=== PATIENT | female | born 1980 | race Caucasian/White ===

== ENCOUNTER 2017-05-04 11:42 | Observation (INO) | payer BC ==
[~2017-05-04 11:42] MED LIST: DEPO400I IM
[2017-05-04] MEDS ORDERED: TERBUTALINE INJ 1 MG/ML AMP ONE (13:13)
--- NOTE | 2017-05-04 15:07 | HHI.DCPOC ---
Discharge Care Plan Report Symptoms to Your Doctor -Temperature above 100.5 degrees -Redness, of incision or excessive or foul smelling drainage -Unusual pain or calf pain -Increased vaginal bleeding -Painful or difficulty urinating -Feelings of extreme sadness or anxiety after 2 weeks Goals to Promote Your Health * To prevent worsening of your condition and complications * To maintain your health at the optimal level Directions to Meet Your Goals Take your medications as prescribed Follow your dietary instruction Follow activity as directed Ensure plenty of rest for recovery Drink fluids for hydration Keep your appointments as scheduled Take your immunizations and boosters as scheduled If your symptoms worsen call your PCP, if no PCP go to Urgent Care Center or Emergency Room Smoking is Dangerous to Your Health. Avoid second hand smoke Call the 24-hour crisis hotline for domestic abuse at [facility]TO next Tuesday at 5:30 for sonogram and section if indicated Amy Tubbs MD May 04, 2017 15:07
== END 2017-05-04 15:22 | disposition home or self-care (01) ==
LOC: H2EB 11:42
PROVIDERS: ADMIT Obstetrics & Gynecology; ATTEND Obstetrics & Gynecology
DX: O32.1XX0 Maternal care for breech presentation, not applicable or unspecified (principal); Z3A.38 38 weeks gestation of pregnancy
CPT/HCPCS: J3105

== ENCOUNTER 2017-05-06 16:35 | Inpatient (IN) | payer BC ==
[2017-05-06] VITALS (9 sets, daily range): BP systolic 112–139; BP diastolic 66–88; PULSE 77–88; RESP 16–19; TEMP 97.7–97.9; O2SAT 100
--- NOTE | 2017-05-06 17:19 | HHI.HP ---
HPI Chief Complaint term, breech, active labor Date Seen: May 06, 2017 Time Seen: 17:14 Travel History International Travel<30 Days: No Contact w/Intl Traveler<30Days: No Known Affected Area: No History of Present Illness HPI 37 yo mwf G1 at 38 3/7 to L & D with regular strong UCs and breech . Attempted version Tuesday not successful. Was 2 cm then. Strip category one. Breech confirmed sonographically For section. No PTL, GDM, HTN PNC with HOGA Weeks Gestation: 38 Para: 0 : 1 Last Menstrual Period: May 06, 2017 Miscarriage: 0 : 0 History Past Medical History Medical History: Denies Significant Hx Past Surgical History Surgical History: No Previous Surgery Family History Family History: Negative Social History Alcohol Use: No Tobacco Use: No Substance Abuse: No Allergies-Medications (Allergen,Severity, Reaction): Coded Allergies: azithromycin (Unverified Adverse Reaction, Intermediate, N & V, DEHYDRATION, 04/12/17) Home Meds Discontinued Reported Medications Medroxyprogesterone Acetate (Depo-Provera) 400 Mg/Ml Inj, 400 MG IM [id number] 03/06/13 Physical Exam Narrative GENERAL: Well-nourished, well-developed patient. SKIN: Warm and dry. HEAD: Normocephalic and atraumatic. EYES: No scleral icterus. No injection or drainage. ENT: No nasal drainage noted. Mucous membranes pink. Airway patent. NECK: Supple, trachea midline. No JVD. CARDIOVASCULAR: Regular rate and rhythm without murmurs, gallops, or rubs. RESPIRATORY: Breath sounds equal bilaterally. No accessory muscle use. BREASTS: Bilateral exam showed no masses , no retractions, no nipple discharge. ABDOMEN/GI: Abdomen soft, non-tender, bowel sounds present, no rebound, no guarding Gravid to [-] weeks size Fundal Height: [-] GENITOURINARY: External Genitalia: intact and normal in appearance 2-3 regular strong UCs category 1 EXTREMITIES: No cyanosis or edema. BACK: Nontender without obvious deformity. No CVA tenderness. NEUROLOGICAL: Awake and alert. Motor and sensory grossly within normal limits. Five out of 5 muscle strength in all muscle groups. Normal speech. Caprini VTE Risk Assessment Caprini VTE Risk Assessment: No/Low Risk (score <= 1) Caprini Risk Assessment Model Point Value = 1 Point Value = 2 Point Value = 3 Point Value = 5 Age 41-60 Minor surgery BMI > 25 kg/m2 Swollen legs Varicose veins or History of unexplained or recurrent spontaneous Oral contraceptives or hormone replacement Sepsis (< 1 month) Serious lung disease, including pneumonia (< 1 month) Abnormal pulmonary function Acute myocardial infarction Congestive heart failure (< 1 month) History of inflammatory bowel disease Medical patient at bed rest Age 61-74 Arthroscopic surgery Major open surgery (> 45 min) Laparoscopic surgery (> 45 min) Malignancy Confined to bed (> 72 hours) Immobilizing plaster cast Central venous access Age >= 75 History of VTE Family history of VTE Factor V Leiden Prothrombin [id number] Lupus anticoagulant Anticardiolipin antibodies Elevated serum homocysteine Heparin-induced thrombocytopenia Other congenital or acquired thrombophilia Stroke (< 1 month) Elective arthroplasty Hip, pelvis, or leg fracture Acute spinal cord injury (< 1 month) Prophylaxis Regimen Total Risk Factor Score Risk Level Prophylaxis Regimen 0-1 Low Early ambulation 2 Moderate Order ONE of the following: *Sequential Compression Device (SCD) *Heparin 5000 units SQ BID 3-4 Higher Order ONE of the following medications: *Heparin 5000 units SQ TID *Enoxaparin/Lovenox 40 mg SQ daily (WT < 150 kg, CrCl > 30 mL/min) *Enoxaparin/Lovenox 30 mg SQ daily (WT < 150 kg, CrCl > 10-29 mL/min) *Enoxaparin/Lovenox 30 mg SQ BID (WT < 150 kg, CrCl > 30 mL/min) AND/OR *Sequential Compression Device (SCD) 5 or more Highest Order ONE of the following medications: *Heparin 5000 units SQ TID (Preferred with Epidurals) *Enoxaparin/Lovenox 40 mg SQ daily (WT < 150 kg, CrCl > 30 mL/min) *Enoxaparin/Lovenox 30 mg SQ daily (WT < 150 kg, CrCl > 10-29 mL/min) *Enoxaparin/Lovenox 30 mg SQ BID (WT < 150 kg, CrCl > 30 mL/min) AND *Sequential Compression Device (SCD) Data Data Orders Orders Vascular Poc Ultrasound (05/06/17 ) Admit To Inpatient (05/06/17 ) Code Status (05/06/17 17:11) Vital Signs (Adult) .ON ADMISSION (05/06/17 17:11) Activity Oob Ad Stacy (05/06/17 17:11) Heart (05/06/17 17:11) Urinary Catheter Management ERNESTO.Q8H (05/06/17 17:11) ^ Preps (05/06/17 17:11) Scd / Timothy / Foot Pump ERNESTO.QSHIFT (05/06/17 17:11) ^ Ultrasound For Locatio (05/06/17 17:11) Diet Npo (05/06/17 Dinner) Lactated Ringer's 1000 Ml Inj (Lr 1000 M (05/06/17 17:11) Lactated Ringer's 1000 Ml Inj (Lr 1000 M (05/06/17 17:41) Cefazolin 2 Gm Premix (Ancef 2 Gm Premix (05/06/17 18:15) Citric Acid-Sodium Citrate Liq (Bicitra (05/06/17 18:45) Type And Screen (05/06/17 17:11) Complete Blood Count With Diff (05/06/17 17:11) Urinalysis - C+S If Indicated (05/06/17 17:11) Inpatient Certification (05/06/17 ) Specimen To Be Collected PRN (05/06/17 17:11) Assessment/Plan Assessment and Plan breech in active labor section now. Amy Tubbs MD May 06, 2017 17:19
[2017-05-06 17:26] LABS: AUTOMATED NEUTROPHIL # 8.1 TH/MM3 (1.8-7.7); BASOPHIL # 0.1 TH/MM3 (0-0.2); BASOPHIL % 0.6 % (0.0-2.0); HEMATOCRIT 33.2 % (35.0-46.0); HEMO FLAGS DIFF FINAL; LYMPH % 27.7 % (9.0-44.0); LYMPHOCYTE # 3.4 TH/MM3 (1.0-4.8); MEAN CORPUSCULAR HEMOGLOBIN 30.6 PG (27.0-34.0); MEAN CORPUSCULAR HGB CONC 33.2 % (32.0-36.0); MONO % 5.4 % (0.0-8.0); NEUT % 66.3 % (16.0-70.0); PLATELET COUNT 207 TH/MM3 (150-450); RED CELL DISTRIBUTION WIDTH 14.1 % (11.6-17.2); WHITE BLOOD COUNT 12.2 TH/MM3 (4.0-11.0)
[2017-05-06] MEDS ORDERED: LACTATED RINGER'S 1000 ML INJ 1,000 ML IV ONE (17:30)
[2017-05-06] MEDS ORDERED: OXYTOCIN 10 UNIT/ML AMP ONE (17:36)
[2017-05-06 17:48] LABS: BACTERIA, URINE MOD /hpf; BLOOD, URINE MOD (NEG); CALCIUM OXALATE CRYSTALS,URINE MANY /hpf; COMMENT (UR) CULTURE INDICATED; CULTURE IF INDICATED CULTURE INDICATED; GLUCOSE,URINE NEG (NEG); KETONE, URINE TRACE mg/dL (NEG); MUCUS URINE MOD /lpf (OCC); NITRITE,URINE NEG (NEG); SQUAMOUS EPITHELIAL CELL URINE 14 /hpf (0-5); URINE COLOR YELLOW (YELLW/STRAW)
[2017-05-06] MEDS ORDERED: LACTATED RINGER'S 1000 ML INJ 1,000 ML IV SCH (18:00)
[2017-05-06] MEDS ORDERED: ACETAMINOPHEN 1000 MG/100 ML 100 ML IV ONE (18:01)
[2017-05-06] MEDS ORDERED: ceFAZolin 2 GM PREMIX 50 ML IV SCH (18:15)
[2017-05-06] MEDS ORDERED: CITRIC ACID-SODIUM CITRATE LIQ 30 ML UDC PO SCH (18:45)
[2017-05-06] MEDS ORDERED: CLINDAMYCIN INJ 600 MG in SODIUM CHLORIDE 0.9% INJ 100 ML IV SCH (19:15)
[2017-05-06] MEDS ORDERED: SIMETHICONE 80 MG CHEWABLE TAB PO PRN (19:15)
[2017-05-06] MEDS ORDERED: KETOROLAC TROMETHAMINE 60 MG/2 ML (IM) VIAL IM PRN (19:15)
[2017-05-06] MEDS ORDERED: ZOLPIDEM TARTRATE 5 MG TAB PO PRN (19:15)
[2017-05-06] MEDS ORDERED: DOCUSATE SODIUM 50 MG/SENNA 8.6 MG TAB PO PRN (19:15)
[2017-05-06] MEDS ORDERED: OXYTOCIN 30 UNITS-500ML PREMIX 500 ML IV ONE (19:15)
[2017-05-06] MEDS ORDERED: ACETAMINOPHEN 325 MG TAB PO PRN (19:15)
[2017-05-06] MEDS ORDERED: SODIUM CHLORIDE 0.9% FLUSH 10 ML FLUSH IV FLUSH PRN (19:15)
[2017-05-06] MEDS ORDERED: ONDANSETRON HCL 4 MG/2 ML VIAL IV PUSH PRN (19:15)
--- NOTE | 2017-05-06 21:32 | PD.OB.DELI ---
Weeks gestation: 38 Gest age assessed date: May 06, 2017 Gest age assessed time: 21:29 Pt started active labor?: Yes Active labor start date: May 06, 2017 Active labor start time: 06:00 Medical induction of labor?: No Artificial rupture of membrane: Yes Artificial ROM date: May 06, 2017 Artifical ROM time: 09:00 Anesthesia: Epidural Episiotomy: Midline Vaginal Delivery: Normal Presentation: Occiput anterior Nuchal Cord: None Delayed cord clamping (45 sec): Yes Infant: Female Delivery date: May 06, 2017 Delivery time: 19:00 One Minute : 9 Five Minute : 9 Weight: 7 13 Placenta: Spontaneous delivery Laceration: 4 deg, Involving anal sphincter, Into rectum Repair: Chromic interrupted, Vicryl interrupted Estimated blood loss: 250 Additional Information repair in layers with excellent results. Vacuum at outlet due to exhaustion. Baby ROP for much of second stage rotating to JUDD at very end. Amy Tubbs MD May 06, 2017 21:32
--- NOTE | 2017-05-06 21:36 | PD.OB.DELI ---
Procedure Note Section Procedure Pre Op Diagnosis: (1) Breech presentation Post Op Diagnosis: (1) delivery indicated due to breech presentation Performed by Amy Tubbs Procedure: Primary Low Transverse Sec Indication for delivery: malposition Previous condition: None Informed consent obtained: For anesthesia, For procedure Confirmed correct: Patient, Procedure, Site, Time-out taken Anesthesia: Spinal Medication prior to procedure: As documented in eMAR Monitoring during procedure: Blood pressure monitoring, environmental monitoring technician, doppler, Pulse oximetry Urinary catheter: Inserted using sterile technique, To dependent drainage Sterile preparation: In usual fashion, With 2% chlorexidine (Hibiclens) Position: Supine with wedge to right side Operative Features Skin Incision: Pfannenstiel Uterine Incision: Low transverse w/knife / blunt ext Membranes Ruptured: Artificially Presentation: Breech Delivery date: May 06, 2017 Delivery time: 19:00 Delivery of infant: Assisted Infant: Female One Minute : 9 Five Minute : 9 Weight: 7 Status of : Viable Placenta delivered: Intact Medications: Antibiotics, Oxytocin Estimated blood loss: 500 Maternal Condition: Stable Condition: Stable (dictated) Amy Tubbs MD May 06, 2017 21:36
[2017-05-06] MEDS: oxyCODONE/ACETAMINOPHEN 5 MG/325 MG TAB PO PRN (23:56)
[2017-05-06] MEDS: IBUPROFEN 600 MG TAB PO PRN (23:56)
[2017-05-07] MEDS ORDERED: LACTATED RINGER'S 1000 ML INJ 1,000 ML IV SCH (00:11)
[2017-05-07 00:30] VITALS: BP 95/67; PULSE 103; RESP 18; TEMP 98.3
[2017-05-07 01:28] VITALS: BP 95/67; PULSE 103; RESP 18
[2017-05-07 04:03] VITALS: BP 108/65; PULSE 96; RESP 18; TEMP 98.4
[2017-05-07] MEDS ORDERED: OXYTOCIN 30 UNITS-500ML PREMIX 500 ML IV PRN (05:15)
[2017-05-07] MEDS: oxyCODONE/ACETAMINOPHEN 5 MG/325 MG TAB PO PRN ×5 (06:08→23:47)
[2017-05-07] MEDS: IBUPROFEN 600 MG TAB PO PRN ×4 (06:08→23:47)
[2017-05-07 07:30] VITALS: BP 103/65; PULSE 96; RESP 17; TEMP 98.3
[2017-05-07] MEDS ORDERED: POLYETHYLENE GLYCOL 17 GM PKG PO SCH (09:00)
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
[2017-05-07] MEDS ORDERED: OXYC1TAB63 PO (09:25)
--- NOTE | 2017-05-07 09:26 | HHI.DCPOC ---
Discharge Care Plan Report Symptoms to Your Doctor -Temperature above 100.5 degrees -Redness, of incision or excessive or foul smelling drainage -Unusual pain or calf pain -Increased vaginal bleeding -Painful or difficulty urinating -Feelings of extreme sadness or anxiety after 2 weeks Goals to Promote Your Health * To prevent worsening of your condition and complications * To maintain your health at the optimal level Directions to Meet Your Goals Take your medications as prescribed Follow your dietary instruction Follow activity as directed Ensure plenty of rest for recovery Drink fluids for hydration Keep your appointments as scheduled Take your immunizations and boosters as scheduled If your symptoms worsen call your PCP, if no PCP go to Urgent Care Center or Emergency Room Smoking is Dangerous to Your Health. Avoid second hand smoke Call the 24-hour crisis hotline for domestic abuse at Amy Tubbs MD May 07, 2017 09:26
[2017-05-07] MEDS: DOCUSATE SODIUM 50 MG/SENNA 8.6 MG TAB PO SCH ×2 (10:14→23:47)
[2017-05-07 14:29] LABS: AUTOMATED NEUTROPHIL # 8.7 TH/MM3 (1.8-7.7); BASOPHIL % 0.1 % (0.0-2.0); EOSINOPHIL % 0.1 % (0.0-4.0); HEMATOCRIT 25.7 % (35.0-46.0); HEMO FLAGS DIFF FINAL; LYMPH % 21.2 % (9.0-44.0); LYMPHOCYTE # 2.5 TH/MM3 (1.0-4.8); MEAN CELL VOLUME 92.2 FL (80.0-100.0); MEAN CORPUSCULAR HEMOGLOBIN 31.8 PG (27.0-34.0); MEAN CORPUSCULAR HGB CONC 34.4 % (32.0-36.0); MONO % 4.7 % (0.0-8.0); NEUT % 73.9 % (16.0-70.0); PLATELET COUNT 159 TH/MM3 (150-450); RED BLOOD COUNT 2.78 MIL/MM3 (4.00-5.30); RED CELL DISTRIBUTION WIDTH 13.8 % (11.6-17.2); WHITE BLOOD COUNT 11.8 TH/MM3 (4.0-11.0)
[2017-05-07] MEDS ORDERED: DIPHTH/TETANUS/ACEL PERTUSSIS (BOOSTER) 0.5 ML VIAL/PFS IM ONE (16:00)
[2017-05-07] MEDS ORDERED: MEASLES, MUMPS, RUBELLA VACCINE 0.5 ML VIAL SQ ONE (16:00)
[2017-05-07 17:00] VITALS: BP 94/67; PULSE 91; RESP 17; TEMP 98.5
--- NOTE | 2017-05-07 17:36 | MP ---
cc: VANDANA COLIN DATE OF SURGERY 05/06/17 DATE OF 1980 PREOPERATIVE DIAGNOSIS Term intrauterine in active labor with breech presentation. POSTOPERATIVE DIAGNOSIS 1. Term intrauterine in active labor with breech presentation. 2. Delivered PROCEDURE Primary low transverse segment section ANESTHESIA Spinal. She declined Duramorph. SURGEON Shanelle Colin MD MACHINE CLOTH TRIMMER Dr. Adolfo Lieberman FINDINGS A living female weighing 7 pounds 8 ounces with Apgars nine at one and 9 at 5 was delivered from right sacrum anterior with classic Pinard maneuvers. Placenta was posterior, grade 3 and then delivered manually with a three-vessel cord. Uterus, tubes and ovaries were unremarkable and blood loss was less than average, probably 500 mL. Sponge, instrument and needle count were correct and she and baby tolerated procedure well. PROCEDURE IN DETAIL The patient was identified as Maile Franks. The indications for procedure, risks and benefits were discussed both prior and at this time. She was walked to the back, given a spinal. She declined Duramorph. She was given 2 grams of Ancef. She was placed in dorsal supine position with weight off the vena cava. She had sequential stockings on. She had a Green catheter placed. She was prepped and draped in the usual sterile fashion. A time-out was performed with all in attendance. After assuring adequate analgesia, a Pfannenstiel incision was made with a knife and carried down through the rectus fascia. The rectus fascia was incised with a knife and taken off the rectus muscle. The rectus muscle was in the midline and the parietal peritoneum was entered sharply. A bladder flap was created off the lower uterine segment. An incision was carefully made into the intrauterine cavity and the amniotic sac was ruptured with clear fluid. The infant was in a le breech position, but the legs were easily grasped at the ankles and the was delivered in footling breech with classic Pinard maneuvers for the arms. The cord was clamped after 45 seconds, cut and the infant was handed to the neonatology team in attendance. Cord gas and cord blood was obtained. The placenta was delivered manually intact. The uterus was exteriorized, cleaned with a lap sponge and closed with chromic in a running interlocking fashion. A second horizontal imbricating suture was then placed. The uterus was replaced back into the abdominal cavity, assured to be hemostatic with no bleeding from the edges or angle and then irrigation was performed. At this point, the rectus muscle and peritoneum were gently closed and then the fascia was closed with one Vicryl in a non interlocking fashion. The subcutaneous layer was closed with 3-0 plain. The skin was closed with 4-0 Vicryl on a Prabhjot needle. Sponge, instrument, needle count correct. Mom and baby tolerated procedure well. MD GILDA Roy/SA /3:17 PM /5:21 PM
[2017-05-07 18:45] VITALS: BP 97/67; PULSE 90; RESP 20; TEMP 98.2; O2SAT 98
[2017-05-08 03:26] VITALS: PULSE 90; RESP 18; TEMP 98.2; O2SAT 97
[2017-05-08 03:29] VITALS: BP 88/63
[2017-05-08] MEDS: IBUPROFEN 600 MG TAB PO PRN ×3 (05:39→17:49)
[2017-05-08] MEDS: oxyCODONE/ACETAMINOPHEN 5 MG/325 MG TAB PO PRN ×3 (05:39→17:49)
[2017-05-08 07:45] VITALS: BP 104/67; PULSE 87; RESP 16; TEMP 97.8
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
[2017-05-08] MEDS: SODIUM CHLORIDE 0.9% FLUSH 10 ML FLUSH IV FLUSH SCH (10:50)
[2017-05-08] MEDS: DOCUSATE SODIUM 50 MG/SENNA 8.6 MG TAB PO SCH ×2 (10:51→21:00)
[2017-05-08] MEDS: IRON SUCROSE INJ 100 MG in SODIUM CHLORIDE 0.9% INJ 100 ML IV SCH (10:52)
[2017-05-08 21:20] VITALS: BP 115/80; PULSE 103; RESP 20; TEMP 99
[2017-05-09] MEDS: IBUPROFEN 600 MG TAB PO PRN ×2 (02:33→09:17)
[2017-05-09] MEDS: oxyCODONE/ACETAMINOPHEN 5 MG/325 MG TAB PO PRN ×2 (02:33→09:17)
[2017-05-09 06:47] LABS: AUTOMATED NEUTROPHIL # 5.9 TH/MM3 (1.8-7.7); BASOPHIL % 0.2 % (0.0-2.0); EOSINOPHIL % 0.2 % (0.0-4.0); HEMATOCRIT 25.6 % (35.0-46.0); HEMO FLAGS DIFF FINAL; LYMPH % 29.5 % (9.0-44.0); LYMPHOCYTE # 2.7 TH/MM3 (1.0-4.8); MEAN CELL VOLUME 92.8 FL (80.0-100.0); MEAN CORPUSCULAR HEMOGLOBIN 31.9 PG (27.0-34.0); MEAN CORPUSCULAR HGB CONC 34.4 % (32.0-36.0); MONO % 5.7 % (0.0-8.0); NEUT % 64.4 % (16.0-70.0); PLATELET COUNT 173 TH/MM3 (150-450); RED BLOOD COUNT 2.76 MIL/MM3 (4.00-5.30); RED CELL DISTRIBUTION WIDTH 14.3 % (11.6-17.2); WHITE BLOOD COUNT 9.1 TH/MM3 (4.0-11.0)
[2017-05-09 08:00] VITALS: BP 115/69; PULSE 94; RESP 18; TEMP 98.7
[2017-05-09] MEDS: DOCUSATE SODIUM 50 MG/SENNA 8.6 MG TAB PO SCH (08:57)
[2017-05-09] MEDS: SODIUM CHLORIDE 0.9% FLUSH 10 ML FLUSH IV FLUSH SCH (09:00)
[2017-05-09] MEDS: IRON SUCROSE INJ 100 MG in SODIUM CHLORIDE 0.9% INJ 100 ML IV SCH (09:19)
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
== END 2017-05-09 15:02 | disposition home or self-care (01) | DRG 766 ==
LOC: H2EB 16:35 → H1EA 20:07
PROVIDERS: ADMIT Obstetrics & Gynecology; ATTEND Obstetrics & Gynecology
PROC: 10D00Z1 Extraction of Products of Conception, Low, Open Approach (ICD-10-PCS; principal; 2017-05-07)
DX: O32.1XX0 Maternal care for breech presentation, not applicable or unspecified (principal); D64.9 Anemia, unspecified; Z37.0 Single live birth; Z3A.38 38 weeks gestation of pregnancy; O90.81 Anemia of the puerperium
CPT/HCPCS: 59025; 76815; 76937; 81001; 85025; 86850; 86900; 86901; 87086; 90715; J0131; J0690; J1756; J1885; J2590; J3105; J7120

== ENCOUNTER 2017-08-16 19:18 | Observation (INO) | payer BC ==
[~2017-08-16 19:18] MED LIST changes: -DEPO400I IM; +OXYC1TAB63 PO
[2017-08-16 19:21] VITALS: BP 106/68; PULSE 107; RESP 20; TEMP 98.1; O2SAT 99
[2017-08-16] MEDS ORDERED: LIDOCAINE 2% JELLY 30 ML TUBE TOPICAL ONE (20:00)
[2017-08-16] MEDS ORDERED: MORPHINE SULFATE 8 MG/ML INJ ONE (20:11)
[2017-08-16] MEDS ORDERED: ONDANSETRON HCL 4 MG/2 ML VIAL IV PUSH ONE (20:15)
[2017-08-16] MEDS ORDERED: MORPHINE SULFATE 4 MG/ML INJ IV PUSH ONE (20:15)
[2017-08-16] MEDS ORDERED: SODIUM CHLOR 0.9% 1000 ML INJ 1,000 ML IV ONE (20:15)
[2017-08-16] MEDS ORDERED: LORazepam 2 MG/ML VIAL IV PUSH ONE (20:15)
--- NOTE | 2017-08-16 20:21 | HHI.PR ---
Subjective Remarks 37 yo mwf P1 s/p C section and subsequent development of large fluid filled cyst in rectovaginal septum. Etiology unclear. Drained and recurred. To OR today at [place] for uneventful cyst excision and home without bleeding or packing. Developed profuse bleeding about 5 pm and came to ED. Here she has stopped bleeding but in severe pain from the RV hematoma in place. Will need to watch 24 hours for pain management and to make sure she does not resume bleeding. Objective Vital Signs Vital Signs Date Time Temp Pulse Resp B/P (MAP) Pulse Ox O2 Delivery O2 Flow Rate FiO2 08/16/17 19:43 18 08/16/17 19:21 98.1 107 20 106/68 (81) 99 Room Air Objective Remarks Chest is clear, regular rate and rhythm. Abdomen is soft and non-distended. perineum without active bleeding. Vaginal vault now without clot and incision line intact. Rectovaginal exam shows mild thickening of septum compared to immediately post op consistent with RV hematoma. A/P Assessment and Plan same day post op complication of bleeding from excision of RV septum cyst. will watch overnight. if Hgb low give venofir. Amy Tubbs MD Aug 16, 2017 20:21
[2017-08-16] MEDS ORDERED: SODIUM CHLORIDE 0.9% FLUSH 10 ML FLUSH IV FLUSH PRN (20:30)
[2017-08-16] MEDS ORDERED: oxyCODONE/ACETAMINOPHEN 5 MG/325 MG TAB PO PRN ×2 (20:30)
[2017-08-16 20:48] LABS: AUTOMATED NEUTROPHIL # 10.3 TH/MM3 (1.8-7.7); BASOPHIL % 0.2 % (0.0-2.0); HEMATOCRIT 38.1 % (35.0-46.0); HEMO FLAGS DIFF FINAL; LYMPH % 16.4 % (9.0-44.0); LYMPHOCYTE # 2.1 TH/MM3 (1.0-4.8); MEAN CELL VOLUME 89.1 FL (80.0-100.0); MEAN CORPUSCULAR HEMOGLOBIN 29.3 PG (27.0-34.0); MEAN CORPUSCULAR HGB CONC 32.9 % (32.0-36.0); MONO % 0.9 % (0.0-8.0); NEUT % 82.5 % (16.0-70.0); PLATELET COUNT 328 TH/MM3 (150-450); RED BLOOD COUNT 4.28 MIL/MM3 (4.00-5.30); RED CELL DISTRIBUTION WIDTH 13.5 % (11.6-17.2); WHITE BLOOD COUNT 12.5 TH/MM3 (4.0-11.0)
--- NOTE | 2017-08-16 21:16 | PD ---
HPI Chief Complaint: Manager Enrollment Problem/Complaint Time Seen by Provider: 19:32 Travel History International Travel<30 days: No Contact w/Intl Traveler<30days: No Traveled to known affect area: No History of Present Illness HPI Patient is a 37-year-old female presenting to the emergency department for evaluation of postoperative bleeding. Patient reports having a cyst removed as outpatient today she went home at 3 PM, by 5 PM she had significant bleeding, she states that blood was pouring out of her vagina. At that time she called her booster operator who recommended she places many tampons as she could comfortably placed in the vagina to help stop the bleeding. Patient states that she placed 3 tampons to which were super one was regular. The bleeding continued, it soaked through the tampons and she needed to stop at a gas station on the way to the hospital in order to clean up. Upon arrival she reports an increase in her back pain, this pain started at home and it got worse and she presented. She states the pain is pressure-like as if she needs to have a bowel movement or is having menstrual cramps. Patient rates her pain a 7 out of 10. PFSH Past Medical History Anxiety: Yes Depression: Yes Cancer: No Cardiovascular Problems: No Diabetes: No Diminished Hearing: No Endocrine: No GERD: Yes Genitourinary: No Hepatitis: No Hiatal Hernia: No Hypertension: No Immune Disorder: No Medical other: No Musculoskeletal: No Neurologic: Yes (LEFT PERINEAL NERVE DAMAGE) Reproductive: No Respiratory: No Thyroid Disease: No Tetanus Vaccination: < 5 Years ?: Not : 1 Para: 1 Past Surgical History AICD: No Body Medical Devices: BREASTS Section: Yes Joint Replacement: No Pacemaker: No Other Surgery: Yes (cyst removed from vaginal wall/) Social History Alcohol Use: No Tobacco Use: No Substance Use: No Allergies-Medications (Allergen,Severity, Reaction): Coded Allergies: azithromycin (Unverified Adverse Reaction, Intermediate, N & V, DEHYDRATION, 08/16/17) Reported Meds & Prescriptions Reported Meds & Active Scripts Active Oxycodone-Acetaminophen 5-325 mg Tab 2 Tab PO Q4H PRN 7 Days Review of Systems Except as stated in HPI: all other systems reviewed are Neg Genitourinary: Positive: Pelvic Pain, Vaginal Bleeding Musculoskeletal: Positive: Pain (back pain) Physical Exam Narrative GENERAL: Well-developed, well-nourished, alert, anxious appearing female. Resting in no acute distress. SKIN: Warm and dry. HEAD: Atraumatic. Normocephalic. EYES: Pupils equal and round. No scleral icterus. No injection or drainage. ENT: No nasal bleeding or discharge. Mucous membranes pink and moist. NECK: Trachea midline. No JVD. CARDIOVASCULAR: Regular rate and rhythm. RESPIRATORY: No accessory muscle use. Clear to auscultation. Breath sounds equal bilaterally. GASTROINTESTINAL: Abdomen soft, non-tender, nondistended. Hepatic and splenic margins not palpable. Positive bowel sounds, no rebound, no guarding. MUSCULOSKELETAL: Extremities without clubbing, cyanosis, or edema. No obvious deformities. NEUROLOGICAL: Awake and alert. No obvious cranial nerve deficits. Motor grossly within normal limits. Five out of 5 muscle strength in the arms and legs. Normal speech. PSYCHIATRIC: Appropriate mood and affect; insight and judgment normal. Data Data Last Documented VS Vital Signs Date Time Temp Pulse Resp B/P (MAP) Pulse Ox O2 Delivery O2 Flow Rate FiO2 08/16/17 19:43 18 08/16/17 19:21 98.1 107 106/68 (81) 99 Room Air Orders Orders Lidocaine 2% Jelly (Xylocaine 2% Jelly) (08/16/17 20:00) Iv Access Insert/Monitor (08/16/17 20:04) Complete Blood Count With Diff (08/16/17 20:04) Basic Metabolic Panel (Bmp) (08/16/17 20:04) Ondansetron Inj (Zofran Inj) (08/16/17 20:15) Morphine Inj (Morphine Inj) (08/16/17 20:15) Sodium Chlor 0.9% 1000 Ml Inj (Ns 1000 M (08/16/17 20:15) Morphine Inj (Morphine Inj) (08/16/17 20:11) Lorazepam Inj (Ativan Inj) (08/16/17 20:15) ^ Other Nursing Orders (08/16/17 20:21) Place In Observation (08/16/17 ) Sodium Chloride 0.9% Flush (Ns Flush) (08/16/17 21:00) Sodium Chloride 0.9% Flush (Ns Flush) (08/16/17 20:30) Oxycodone-Acetamin 5-325 Mg (Percocet (08/16/17 20:30) Oxycodone-Acetamin 5-325 Mg (Percocet (08/16/17 20:30) Admit Order (Ed Use Only) (08/16/17 20:27) Labs Laboratory Tests Test 08/16/17 20:16 White Blood Count 12.5 TH/MM3 Red Blood Count 4.28 MIL/MM3 Hemoglobin 12.5 GM/DL Hematocrit 38.1 % Mean Corpuscular Volume 89.1 FL Mean Corpuscular Hemoglobin 29.3 PG Mean Corpuscular Hemoglobin Concent 32.9 % Red Cell Distribution Width 13.5 % Platelet Count 328 TH/MM3 Mean Platelet Volume 8.7 FL Neutrophils (%) (Auto) 82.5 % Lymphocytes (%) (Auto) 16.4 % Monocytes (%) (Auto) 0.9 % Eosinophils (%) (Auto) 0.0 % Basophils (%) (Auto) 0.2 % Neutrophils # (Auto) 10.3 TH/MM3 Lymphocytes # (Auto) 2.1 TH/MM3 Monocytes # (Auto) 0.1 TH/MM3 Eosinophils # (Auto) 0.0 TH/MM3 Basophils # (Auto) 0.0 TH/MM3 CBC Comment DIFF FINAL Differential Comment MDM Medical Decision Making Medical Screen Exam Complete: Yes Emergency Medical Condition: Yes Interpretation(s) Vital Signs Date Time Temp Pulse Resp B/P (MAP) Pulse Ox O2 Delivery O2 Flow Rate FiO2 08/16/17 19:43 18 08/16/17 19:21 98.1 107 20 106/68 (81) 99 Room Air Differential Diagnosis Postoperative bleeding versus anemia versus metabolic abnormality versus hemorrhage versus other Narrative Course Patient presented on the advice of her booster operator Dr. Black. Patient's vital signs are stable, Dr. black was notified on patient's arrival. She presented to the emergency department and evaluated patient and ultimately placed orders for admission. Please see her note for further information. Patient was given pain medication, IV fluids and nausea medication. Admit orders placed. Diagnosis Primary Impression: Postoperative vaginal bleeding following non-genitourinary procedure Admitting Information Admitting Physician Requests: Observation Condition: Stable Shefali Lozano Aug 16, 2017 21:16
[2017-08-16 21:22] LABS: BICARBONATE 24.3 MEQ/L (21.0-32.0); POTASSIUM 3.7 MEQ/L (3.5-5.1)
[2017-08-16] MEDS: SODIUM CHLORIDE 0.9% FLUSH 10 ML FLUSH IV FLUSH SCH (22:32)
[2017-08-16] MEDS ORDERED: LORazepam 2 MG/ML VIAL IM PRN (23:00)
[2017-08-16 23:05] VITALS: BP 106/67; PULSE 90; RESP 18; TEMP 97.7; O2SAT 97
[2017-08-16] MEDS ORDERED: BISACODYL 10 MG SUPP RECTAL ONE (23:59)
[2017-08-17 04:07] VITALS: BP 101/64; PULSE 92; RESP 18; TEMP 98; O2SAT 99
[2017-08-17 07:37] VITALS: BP 103/68; PULSE 103; RESP 18; TEMP 97.5; O2SAT 99
[2017-08-17 08:16] LABS: AUTOMATED NEUTROPHIL # 9.2 TH/MM3 (1.8-7.7); BASOPHIL % 0.1 % (0.0-2.0); HEMATOCRIT 32.7 % (35.0-46.0); HEMO FLAGS DIFF FINAL; LYMPH % 18.3 % (9.0-44.0); LYMPHOCYTE # 2.2 TH/MM3 (1.0-4.8); MEAN CELL VOLUME 90.1 FL (80.0-100.0); MEAN CORPUSCULAR HEMOGLOBIN 29.2 PG (27.0-34.0); MEAN CORPUSCULAR HGB CONC 32.4 % (32.0-36.0); MONO % 4.1 % (0.0-8.0); NEUT % 77.5 % (16.0-70.0); PLATELET COUNT 267 TH/MM3 (150-450); RED BLOOD COUNT 3.63 MIL/MM3 (4.00-5.30); RED CELL DISTRIBUTION WIDTH 13.7 % (11.6-17.2); WHITE BLOOD COUNT 11.9 TH/MM3 (4.0-11.0)
--- NOTE | 2017-08-17 08:54 | HHI.PR ---
Subjective Remarks Doing well, pain is well controlled, eating well. no more bleeding moved bowels Hgb 10.6 Objective Vital Signs Vital Signs Date Time Temp Pulse Resp B/P (MAP) Pulse Ox O2 Delivery O2 Flow Rate FiO2 08/17/17 07:37 97.5 103 18 103/68 (80) 99 08/17/17 04:07 98.0 92 18 101/64 (76) 99 08/16/17 23:05 97.7 90 18 106/67 (80) 97 08/16/17 22:35 08/16/17 19:43 18 08/16/17 19:21 98.1 107 20 106/68 (81) 99 Room Air I/O 08/16/17 08/16/17 08/16/17 08/17/17 08/17/17 08/17/17 07:00 15:00 23:00 07:00 15:00 23:00 Intake Total 1000 ml 240 ml Balance 1000 ml 240 ml Intake Oral 240 ml IV Total 1000 ml # Voids 2 # Bowel Movements 1 Result Diagram: 08/17/17 0710 08/16/172015 Objective Remarks Chest is clear, regular rate and rhythm. Abdomen is soft and non-distended. perineum without active bleeding. Vaginal vault now without clot and incision line intact. Rectovaginal exam shows mild thickening of septum compared to immediately post op consistent with RV hematoma. A/P Assessment and Plan stable pOD 1 home resrictions discussed Amy Tubbs MD Aug 17, 2017 08:54
--- NOTE | 2017-08-17 08:55 | HHI.DCPOC ---
Discharge Care Plan Report Symptoms to Your Doctor -Temperature above 100.5 degrees -Redness, of incision or excessive or foul smelling drainage -Unusual pain or calf pain -Increased vaginal bleeding -Painful or difficulty urinating -Feelings of extreme sadness or anxiety after 2 weeks Goals to Promote Your Health * To prevent worsening of your condition and complications * To maintain your health at the optimal level Directions to Meet Your Goals Take your medications as prescribed Follow your dietary instruction Follow activity as directed Ensure plenty of rest for recovery Drink fluids for hydration Keep your appointments as scheduled Take your immunizations and boosters as scheduled If your symptoms worsen call your PCP, if no PCP go to Urgent Care Center or Emergency Room Smoking is Dangerous to Your Health. Avoid second hand smoke Call the 24-hour crisis hotline for domestic abuse at Amy Tubbs MD Aug 17, 2017 08:55
[2017-08-17] MEDS: SODIUM CHLORIDE 0.9% FLUSH 10 ML FLUSH IV FLUSH SCH (10:29)
== END 2017-08-17 13:11 | disposition home or self-care (01) ==
LOC: NEPE 19:18 → NEDA 20:28 → N06B 22:44
PROVIDERS: ADMIT Obstetrics & Gynecology; ATTEND Obstetrics & Gynecology
DX: N99.820 Postprocedural hemorrhage of a genitourinary system organ or structure following a genitourinary system procedure (principal); M54.9 Dorsalgia, unspecified; F41.9 Anxiety disorder, unspecified; F32.9 Major depressive disorder, single episode, unspecified; K21.9 Gastro-esophageal reflux disease without esophagitis
CPT/HCPCS: 80048; 85025; 96361; 96374; 96375; 99285; G0378; J2060; J2270; J2405; J7030